=== PATIENT | male | born 1980 | race Caucasian/White ===

== ENCOUNTER 2018-07-19 20:50 | Inpatient (IN) | payer MEDICAID ==
[~2018-07-19] VITALS: Ht 172.7 cm; Wt 79.4 kg
[2018-07-19 22:10] LABS: BASOPHIL % 0.3 % (0-2); PLATELET COUNT 171 x10^3mcL (130-400)
[2018-07-19 22:12] LABS: RED CELL DISTRIBUTION WIDTH 16.4 % (11.5-14.5)
[2018-07-19 22:19] LABS: CALCIUM 8.3 mg/dL (8.5-10.1); CARBON DIOXIDE 20.9 mmol/L (21-32); CHLORIDE SERUM 104 mmol/L (98-107); CREATININE SERUM 0.7 mg/dL (0.7-1.3); GFR1 > 60 mL/min; GLUCOSE SERUM 118 mg/dL (74-106); POTASSIUM SERUM 3.3 mmol/L (3.5-5.1); SODIUM SERUM 139 mmol/L (136-145)
[2018-07-19 22:23] LABS: ALBUMIN 3.9 g/dL (3.4-5.0); ALKALINE PHOSPHATASE 70 U/L (46-116); ALT/SGPT 30 U/L (16-63); AMYLASE 56 U/L (25-115); AST/SGOT 16 U/L (15-37); BILIRUBIN TOTAL 0.56 mg/dL (0.20-1.00); LIPASE 244 IU/L (73-393); TOTAL PROTEIN, SERUM 7.2 g/dL (6.4-8.2)
[2018-07-19 22:48] LABS: AMPHETAMINE QUAL UR NONE DETECTED (See below)
[2018-07-20 01:31] LABS: PHOSPHOROUS 2.9 mg/dL (2.5-4.9)
[2018-07-20 01:33] LABS: CHOLESTEROL/HDL RATIO 2.5
[2018-07-20 01:51] LABS: FREE T4 1.13 ng/dL (0.76-1.46); T4(THYROXINE) 10.3 ug/dL (4.7-13.3)
[2018-07-20 02:43] VITALS: BP 95/52
[2018-07-20 04:18] LABS: T3 TOTAL 1.22 ng/mL
[2018-07-20 05:51] VITALS: BP 97/55
[2018-07-20 06:14] LABS: BASOPHIL % 0.4 % (0-2); PLATELET COUNT 150 x10^3mcL (130-400)
[2018-07-20 06:25] LABS: CALCIUM 7.6 mg/dL (8.5-10.1); CHLORIDE SERUM 109 mmol/L (98-107); CREATININE SERUM 0.8 mg/dL (0.7-1.3); GFR1 > 60 mL/min; GLUCOSE SERUM 86 mg/dL (74-106); MAGNESIUM 2.5 mg/dL (1.8-2.4); POTASSIUM SERUM 3.5 mmol/L (3.5-5.1); SODIUM SERUM 144 mmol/L (136-145)
[2018-07-20 08:23] LABS: microscopic required? NO
[2018-07-20 09:21] LABS: UA SPECIFIC GRAVITY <=1.005 (1.005-1.035); urine erythrocyte NEGATIVE (NEGATIVE)
[2018-07-20 09:26] VITALS: BP 118/74
[2018-07-20 12:22] VITALS: BP 137/88
[2018-07-20 17:32] VITALS: BP 122/81
[2018-07-20 21:17] VITALS: BP 124/81
[2018-07-21 05:14] VITALS: BP 127/78
[2018-07-21 07:38] LABS: CALCIUM 7.5 mg/dL (8.5-10.1); CARBON DIOXIDE 21.5 mmol/L (21-32); CHLORIDE SERUM 104 mmol/L (98-107); CREATININE SERUM 0.7 mg/dL (0.7-1.3); GFR1 > 60 mL/min; GLUCOSE SERUM 80 mg/dL (74-106); PHOSPHOROUS 2.8 mg/dL (2.5-4.9); POTASSIUM SERUM 3.2 mmol/L (3.5-5.1); SODIUM SERUM 138 mmol/L (136-145)
[2018-07-21 07:42] LABS: BASOPHIL % 0.3 % (0-2); PLATELET COUNT 141 x10^3mcL (130-400)
[2018-07-21 07:45] LABS: RED CELL DISTRIBUTION WIDTH 15.7 % (11.5-14.5)
[2018-07-21 09:00] VITALS: BP 131/87
[2018-07-21 13:29] VITALS: BP 133/83
[2018-07-21 17:09] VITALS: BP 136/78
[2018-07-21 21:41] VITALS: BP 110/71
[2018-07-22 05:52] VITALS: BP 113/78
[2018-07-22 07:42] LABS: CHLORIDE SERUM 105 mmol/L (98-107); CREATININE SERUM 0.8 mg/dL (0.7-1.3); GFR1 > 60 mL/min; GLUCOSE SERUM 93 mg/dL (74-106); MAGNESIUM 1.7 mg/dL (1.8-2.4); PHOSPHOROUS 3.5 mg/dL (2.5-4.9); POTASSIUM SERUM 3.6 mmol/L (3.5-5.1); SODIUM SERUM 138 mmol/L (136-145)
[2018-07-22 08:03] LABS: BASOPHIL % 0.5 % (0-2); PLATELET COUNT 153 x10^3mcL (130-400)
[2018-07-22 08:14] LABS: RED CELL DISTRIBUTION WIDTH 15.7 % (11.5-14.5)
[2018-07-22 08:25] VITALS: BP 100/56
[2018-07-22 08:29] VITALS: Ht 172.7 cm; Wt 79.4 kg
[2018-07-22 12:05] VITALS: BP 120/76
[2018-07-22 17:00] VITALS: BP 126/79
[2018-07-22 21:08] VITALS: BP 122/86
[2018-07-23 05:24] VITALS: BP 108/78
[2018-07-23 06:21] LABS: BASOPHIL % 0.3 % (0-2); PLATELET COUNT 157 x10^3mcL (130-400)
[2018-07-23 06:39] LABS: CALCIUM 8.4 mg/dL (8.5-10.1); CARBON DIOXIDE 25.8 mmol/L (21-32); CHLORIDE SERUM 103 mmol/L (98-107); CREATININE SERUM 0.8 mg/dL (0.7-1.3); GFR1 > 60 mL/min; GLUCOSE SERUM 90 mg/dL (74-106); PHOSPHOROUS 3.7 mg/dL (2.5-4.9); POTASSIUM SERUM 3.6 mmol/L (3.5-5.1); SODIUM SERUM 140 mmol/L (136-145)
[2018-07-23] MEDS ORDERED: PROZ20 PO (09:58)
[2018-07-23 11:34] VITALS: BP 108/78
== END 2018-07-23 11:56 | disposition home or self-care (01) | DRG 775 ==
LOC: ED 20:50 → DU 07-20 01:15
PROVIDERS: Emergency Medicine; Family Medicine; ADMIT Internal Medicine
DX: F10.229 Alcohol dependence with intoxication, unspecified (principal); G92 Toxic encephalopathy; E83.41 Hypermagnesemia; E83.51 Hypocalcemia; R45.851 Suicidal ideations; E51.2 Wernicke's encephalopathy; E87.6 Hypokalemia; E02 Subclinical iodine-deficiency hypothyroidism; E78.5 Hyperlipidemia, unspecified; Y90.8 Blood alcohol level of 240 mg/100 ml or more; Z68.26 Body mass index [BMI] 26.0-26.9, adult
CPT/HCPCS: 83880; 84439; C9113; G0480; J1630; J2060; J2405; J3411; J3475; J3490; J7030; Q0092